=== PATIENT | female | born 1965 | race Caucasian/White ===

== ENCOUNTER 2023-02-15 09:27 | Day surgery (SDC) | payer OTHER ==
[2023-02-15] MEDS ORDERED: Decadron 4 MG INJ IV ONE (09:28)
[2023-02-15] MEDS ORDERED: Sodium Chloride 0.9(Preservative Free) 10 ML IJ ONE (09:28)
[2023-02-15] MEDS ORDERED: DIPRIVAN 200 MG/20 ML IV ONE (11:45)
--- NOTE | 2023-02-15 13:10 | XRAY ---
Indication: Right L4-S1 transforaminal TODD. Intraoperative fluoroscopy provided for 27 seconds. 4 digital spot image submitted for interpretation demonstrates posterior needle tips projecting over expected right L4 and L5 nerve roots.. Small amount of contrast injected for needle tip placement. Correlate with intraoperative findings/report.
--- NOTE | 2023-02-15 13:19 | XRAY ---
27 seconds of fluoroscopy was used in surgery for a right L4-S1 transforaminal TODD.
[2023-02-15] MEDS ORDERED: Lactated Ringers 1,000 ML IV ONE (15:32)
== END 2023-02-15 12:15 | disposition home or self-care (01) ==
LOC: SDC-PAIN 09:27
PROVIDERS: ATTEND Psychiatry & Neurology Pain Medicine
DX: M54.16 Radiculopathy, lumbar region (principal); E11.9 Type 2 diabetes mellitus without complications; Z79.899 Other long term (current) drug therapy
CPT/HCPCS: 64483; 64484; 72100; 77003; 82947; J1100; J2704; Q9966